=== PATIENT | male | born 1940 | race Caucasian/White ===

== ENCOUNTER → 2018-05-20 | Outpatient (CLI) | payer OTHER ==
[~2018-05-20] MED LIST: ACETAMINOPHEN-1 EAC1 PO; AMOXICILLIN500 M1 PO; ANTIVERT25 MG PO; CELEXA20 MG; IBUPROFEN 800800 M1 PO; MOBIC15 MG; MULTIVITAMINS; OMEPRAZOLE20 M2; PHENERGAN 25 MG25 M1 PO; PREDNISONE50 MG PO; [UNRECOGNIZED DRUG - REMARK]
== END ==
LOC: M.CT 05-02 09:00
DX: G31.9 Degenerative disease of nervous system, unspecified (principal); W19.XXXA Unspecified fall, initial encounter